=== PATIENT | female | born 1985 | race Caucasian/White ===

== ENCOUNTER 2018-06-14 19:25 | Outpatient (CLI) | payer BC, SELFPAY ==
[2018-06-14 20:16] LABS: Mucous, Urine 0 SEEN /hpf (<or=2+)
[2018-06-14 20:18] LABS: Color, Urine Yellow (Yellow); Glucose, Dipstick Normal (Normal); Leukocyte Esterase-Dipstick 100 /ul (Negative); Nitrite-Dipstick Negative (Negative); Occult Blood-Urine Negative /ul (Negative); Protein-Dipstick Negative (Negative); Urine Bilirubin Dipstick Negative (Negative); Urine Clarity Clear (Clear); Urine Urobilinogen Normal (Normal)
[2018-06-14 20:26] LABS: Ketone-Dipstick 150 mg/dl (Negative)
[2018-06-14 20:31] LABS: White Blood Cells 10-25 SEEN /hpf (0-5)
[2018-06-14 20:32] LABS: Bacteria 1+ /hpf (None Seen); Red Blood Cells-Urine 0-5 SEEN /hpf (0-5); Squamous Epithelial Cells - UA 5-10 SEEN /hpf (5-10)
[2018-06-14 21:13] VITALS: BMI 30.4
--- NOTE | 2018-06-15 01:42 | OB.TRI.NOTE ---
- Problem List (1) Trichomonas contact, untreated Status: Acute (2) Uterine contractions or other obstetric complaints Status: Acute History of Present Illness Date of Service: 06/14/18 Was patient seen by the physician?: No Reason For Visit: R/O LABOR Date of Service: 06/14/18 Final SHERWIN: 07/06/18 Gestational age: 37 Weeks and 0 Days History of Present Illness: 32 year old female presenting to L&D with complaints of uterine contractions. Positive trichomonas last week, has not taken medication for treatment and no partner treatment. Denies any vaginal bleeding or leakage of fluid. Good movement. Allergies No Known Allergies Allergy (Verified 06/14/18 21:15) NST - FHR Rate Baby A Baseline: 130 Variability:: Moderate Accelerations:: 15 x 15 Decelerations:: Variable NST Reactive:: Yes Uterine Activity:: Every 2-3 minutes Impression/Plan A: False labor P: 1) NST reactive, no cervical change, ok to D/C home 2) Patient has not completed medication for trichomonas infection nor has partner been treated. To complete therapy for trichomonas and instructed for partner treatment and no intercourse during treatment.
== END 2018-06-14 22:35 | disposition home or self-care (01) ==
LOC: WPOUT 20:02 → WP 20:03
PROVIDERS: Family Provider Internal Medicine; PCP Internal Medicine; Visit Provider Obstetrics & Gynecology
DX: O47.1 False labor at or after 37 completed weeks of gestation (principal); O98.313 Other infections with a predominantly sexual mode of transmission complicating pregnancy, third trimester; A59.9 Trichomoniasis, unspecified; Z3A.37 37 weeks gestation of pregnancy
CPT/HCPCS: 59025; 59050; 81001; 87086; 87088; 99218; G0378

== ENCOUNTER 2018-06-23 11:35 | Outpatient (CLI) | payer BC, SELFPAY ==
[2018-06-23 11:53] VITALS: BMI 29.9
[2018-06-23 12:44] LABS: Hemoglobin 10.4 g/dl (12.0-15.0); Mean Corp Hgb Conc 32.5 g/gl (32-36); Mean Corpuscular Hgb 29.4 pg (27.0-32.0); Mean Corpuscular Volume 90.4 fL (81-99); Mean Platelet Vol. 9.6 fl (6.2-12.0); Platelet Count 264 K/mm3 (150-450); RBC Distribution Width CV 12.5 % (11.6-14.6); RBC Distribution Width SD 41.4 fl (35.1-43.9); Red Blood Count 3.54 M/mm3 (4.2-5.4); Scan Indicated on CBC? Y/N NO; White Blood Count 9.6 K/mm3 (4.4-11.0)
[2018-06-23 12:53] LABS: Protein, Urine (Random) 23.5 mg/dL (<11.9); Protein:Creat Ratio 249 mg/g CRE (0-200)
[2018-06-23 13:15] LABS: ALB/GLOB Ratio 0.6 RATIO (0.9-2.4); AST(SGOT) 12 U/L (15-37); Alanine Aminotransfer ALT/SGPT 17 U/L (13-56); Albumin, Serum 2.4 g/dL (3.2-5.0); Alkaline Phosphatase 222 U/L (45-117); Anion Gap 10 (5-15); BUN 7 mg/dL (7-18); BUN/Creat Ratio 11.1 RATIO (10-20); Calcium,Total 8.4 mg/dL (8.5-10.1); Chloride 106 mmol/L (98-107); Creatinine, Serum 0.63 mg/dL (0.55-1.02); EST Glomerular Filtration Rate 115 mL/min (>60); Est Glom Filt Rate - Afr Amer 140 mL/min (>60); Estimated Creatinine Clearance 120.01 ml/min; Globulin 4.1 g/dL (2.2-4.2); Glucose 85 mg/dL (74-106); Potassium 3.8 mmol/L (3.5-5.1); Protein, Total 6.5 g/dL (6.4-8.2); Sodium Level 137 mmol/L (136-145)
--- NOTE | 2018-06-23 13:54 | OB.TRI.NOTE ---
- Problem List (1) Nausea & vomiting Status: Acute History of Present Illness Date of Service: 06/23/18 Was patient seen by the physician?: Yes Reason For Visit: Nausea & Vomiting Date of Service: 06/23/18 Final SHERWIN: 07/06/18 Gestational age: 38 Weeks and 1 Days History of Present Illness: 32-year-old 011 at 38w1d gestation presenting to triage with multiple complaints. Her biggest complaint is of fatigue over the last several days. She admits to a headache that started last night and was unrelieved with Tylenol. Admits to intermittent vision changes that have now resolved. Denies epigastric or right upper quadrant pain. Admits to nausea and vomiting last night, as well as this morning. Last ate dinner last night and was not able to tolerate it. Has not had anything to eat or drink today. Has no appetite due to nausea. Denies fevers, chills, diarrhea. Denies new foods or sick contacts. Denies contractions, vaginal bleeding, loss of fluid. Also admits to sinus congestion, sore throat, and postnasal drip. The cold-like symptoms started this morning. The patient reports all of the above symptoms have been coming and going over the last several months. She reports multiple episodes of these same symptoms over the last several months. Per office chart review, she did report having daily headaches even before at two of her visits. Allergies No Known Allergies Allergy (Verified 06/14/18 21:15) - Pertinent Past Medical History Pertinent Past Medical History: Patient reported a history of thyroid disorder. Per office chart review she also has a history of tobacco use, depression, heroin use, trichomonas, and chronic hepatitis C. Review of Systems Constitutional: Reports: Weakness, Fatigue Eyes: Denies: Vision Change HEENT: Reports: Head Aches, Post Nasal Drip, Sinus Congestion, Sinus Drainage, Sore Throat Cardiovascular: Denies: Edema Respiratory: Denies: Shortness of Breath Gastrointestinal: Reports: Constipation, Nausea, Vomiting. Denies: Abdominal Pain, Diarrhea Gynecological: Denies: Vaginal bleeding Physical Exam General: Alert, Oriented x3 HEENT: Atraumatic, Normocephalic Cardiovascular: Regular rate Lungs: - - No increased resp effort Abdomen: Soft, Non Tender, Non-Distended, Gravid Extremities:: No edema Neurological: Deep Tendon Reflexes 2+/4 and Symmetrical, Neuro grossly intact NST - FHR Rate Baby A Baseline: 120 Variability:: Moderate Accelerations:: 15 x 15 Decelerations:: None NST Reactive:: Yes Uterine Activity:: Quiet Impression/Plan 32 y/o at 38w1d who presents to triage with multiple complaints. - Given IZQUIERDO and now resolved vision changes, obtained pre-eclampsia labs. Pre-e labs WNL. P/c ratio 249. BP normal in triage. Reflexes normal. Does not appear to be pre-eclampsia. Per office chart review, the patient did report daily IZQUIERDO's on multiple occasions. IZQUIERDO possibly secondary to dehydration - Cold-like symptoms as well as N/V possibly due to viral illness. Given Zofran in triage, and completed PO challenge. Patient tolerated food and water in triage. Given rx for 5 tablets of Zofran. Discussed with her the importance of hydration. Told her to call if her symptoms do not resolve in the next few days or if she cannot tolerate PO - Will have her complete a 24 hr urine protein/creatinine - Reviewed return precautions with the patient - To follow up at her next apt in the office next week
[2018-06-23] MEDS: Ondansetron ODT 4 MG Tablet PO (14:01)
== END 2018-06-23 14:40 | disposition home or self-care (01) ==
LOC: WPOUT 11:41 → WP 11:41
PROVIDERS: Obstetrics & Gynecology; Family Provider Internal Medicine; PCP Internal Medicine; Visit Provider Obstetrics & Gynecology
DX: O21.2 Late vomiting of pregnancy (principal); O26.893 Other specified pregnancy related conditions, third trimester; R51 Headache; J00 Acute nasopharyngitis [common cold]; Z3A.38 38 weeks gestation of pregnancy
CPT/HCPCS: 36415; 59025; 59050; 80053; 82570; 84156; 85027; 99218; G0378

== ENCOUNTER → 2018-06-24 14:39 | Outpatient (CLI) | payer BC, SELFPAY ==
[2018-06-24 15:55] LABS: 24 Hour Urine Protein 308.7 mg/24HR (<150 MG/24HR); 24HR. UA Prot. Total Volume 2100 mL; 24HR. Urine Creatinine 2.15 g/24 HR (0.70-1.90); Urine Protein (24 Hour) 14.7 mg/dL (<11.9)
== END ==
PROVIDERS: Family Provider Internal Medicine; PCP Internal Medicine; Visit Provider Obstetrics & Gynecology
DX: O26.899 Other specified pregnancy related conditions, unspecified trimester (principal); R51 Headache; Z3A.00 Weeks of gestation of pregnancy not specified
CPT/HCPCS: 81050; 82570; 84156

== ENCOUNTER 2018-06-27 00:55 | Outpatient (CLI) | payer BC, SELFPAY ==
[2018-06-27 01:52] VITALS: BMI 30.2
[2018-06-27 02:13] LABS: ROM Internal Control Test YES-OK TO RESULT pt. (Internal QC); ROM Patient Test Negative (Negative)
[2018-06-27 02:25] VITALS: RESP 18
--- NOTE | 2018-06-27 12:02 | OB.TRI.NOTE ---
History of Present Illness Date of Service: 06/27/18 Was patient seen by the physician?: No Reason For Visit: R/O SROM Date of Service: 06/27/18 Final SHERWIN: 07/06/18 Gestational age: 38 Weeks and 5 Days History of Present Illness: 32 year old Presented to L&D with complaint of leakage of fluid at 38w5d . Denies vaginal bleeding or contractions. Feels tightening at times. Allergies No Known Allergies Allergy (Verified 06/14/18 21:15) Physical Exam Vitals: Vital Signs Resp 18 06/27/18 02:25 NST - FHR Rate Baby A Baseline: 130 Variability:: Moderate Accelerations:: 15 x 15 Decelerations:: None NST Reactive:: Yes FHR Category:: Category I Uterine Activity:: q 1.5 to 4 minutes, lasting 30-150 seconds, mild. Patient did not feel contractions and can feel tighening on and off. Impression/Plan A:False labor P: 1) ROM plus negative 2) NST reactive. Uterine irritability 3) D/C home
== END 2018-06-27 02:25 | disposition home or self-care (01) ==
LOC: WPOUT 01:30 → WP 07-01 07:23
PROVIDERS: Family Provider Internal Medicine; PCP Internal Medicine; Visit Provider Obstetrics & Gynecology
DX: O47.1 False labor at or after 37 completed weeks of gestation (principal); Z3A.38 38 weeks gestation of pregnancy
CPT/HCPCS: 59025; 59050; 84112; 99218; G0378

== ENCOUNTER 2018-07-03 02:00 | Outpatient (CLI) | payer BC, SELFPAY ==
[2018-07-03 02:36] VITALS: BMI 30.6
[2018-07-03 03:00] LABS: ROM Internal Control Test YES-OK TO RESULT pt. (Internal QC); ROM Patient Test Negative (Negative)
[2018-07-03 03:15] VITALS: RESP 18
--- NOTE | 2018-07-03 08:05 | OB.TRI.NOTE ---
History of Present Illness Date of Service: 07/03/18 Was patient seen by the physician?: No Reason For Visit: R/O LABOR Allergies No Known Allergies Allergy (Verified 07/03/18 02:35) Physical Exam Vitals: Vital Signs Resp 18 07/03/18 03:15 NST - FHR Rate Baby A Baseline: 120 Variability:: Moderate Accelerations:: 15 x 15 Decelerations:: None NST Reactive:: Yes FHR Category:: Category I Uterine Activity:: q2-4min - palpate mild Impression/Plan 32yo @ 38.5 wks- Membranes intact 1) ROM plus negative 2) Dc home- NST reactive
== END 2018-07-03 03:15 | disposition home or self-care (01) ==
LOC: WPOUT 02:15 → WP 02:15
PROVIDERS: Family Provider Internal Medicine; PCP Internal Medicine; Visit Provider Obstetrics & Gynecology
DX: Z34.83 Encounter for supervision of other normal pregnancy, third trimester (principal)
CPT/HCPCS: 59025; 59050; 84112; 99218; G0378

== ENCOUNTER 2018-07-10 06:54 | Inpatient (IN) | payer BC, SELFPAY ==
[2018-07-10 07:01] VITALS: BMI 29.9
[2018-07-10] MEDS: Lactated Ringers 1,000 ML 50 ML IV ×2 (07:25→13:21)
[2018-07-10] MEDS: Oxytocin 30 units/NS 500 ml 30 UNITS/500 ML IV.SOLN IV (07:40)
[2018-07-10 07:46] LABS: Hematocrit 31.5 % (37-47); Hemoglobin 10.4 g/dl (12.0-15.0); Mean Corpuscular Volume 87.7 fL (81-99); Mean Platelet Vol. 10.4 fl (6.2-12.0); Platelet Count 292 K/mm3 (150-450); RBC Distribution Width CV 12.4 % (11.6-14.6); RBC Distribution Width SD 38.5 fl (35.1-43.9); Red Blood Count 3.59 M/mm3 (4.2-5.4); White Blood Count 9.7 K/mm3 (4.4-11.0)
[2018-07-10 07:48] LABS: Scan Indicated on CBC? Y/N NO
--- NOTE | 2018-07-10 08:22 | PCM.HP.OB ---
History Date of Admission: 07/10/18 Final SHERWIN: 07/06/18 Final SHERWIN Source: US <20 weeks Gestational age: 40 Weeks and 4 Days History of this : 32-year-old 3 para 1 Ab1 female who presents at 40-4/7 weeks gestation with EDC of 07/06/2018 by last menstrual period confirmed by first trimester ultrasound who presents for induction of labor. Patient has been complaining of decreased movement for several days. She came in the office the other day and complained of decreased movement. She had an JOHANNA of 7 cm with a vertical pocket of 5 cm and a reactive nonstress test. Audible and visual movement that the patient reports she did not feel were apparent on exam. Today she had normal movement. She was initially scheduled for induction of labor yesterday due to being status post 40 weeks gestation and decreased movement. Due to the acuity of the unit, she was moved to today which was clinically reasonable. She denies any vaginal bleeding or leaking of fluid. She has had some irregular contractions. has been complicated to date by tobacco use and persistent trichomonas. Patient states she has been treated for this and her partner has been tested and is negative, however in mid May her screen was still positive. She has a history of heroin use in the past but states she has not used for several years. She denies using alcohol during . She has a history of hepatitis C, but has been tested and has been negative and is considered hep C negative at this point. Allergies No Known Allergies Allergy (Verified 07/03/18 02:35) Home Medications: Home Medications Levothyroxine [Synthroid] 112 mcg PO DAILY 06/14/18 Vitamins 1 tablet PO DAILY 06/23/18 Tums 1 tab PO PRN PRN 06/23/18 Smoking Status: Current every day smoker Alcohol: Occasional - binge by history, denies during pregnnacy Substance Use Type: Heroin - quit 2009 per her report Number of Fetus(es): 1 History Past Pregnancies: Past Pregnancies Delivery Date Name GA/Weeks Outcome Route Weight Gender Labor Length Anesthesia Delivery Location Provider FOB Expected Infant Delivery Method: Spontaneous Vaginal Review of Systems Constitutional: Denies: Anorexia, Chills, Fever Eyes: Denies: Blurred vision Cardiovascular: Denies: Chest Pain Respiratory: Denies: Cough Gastrointestinal: Denies: Abdominal Pain Genitourinary: Denies: Dysuria Physical Exam General: Alert, Cooperative, No apparent distress Cardiovascular: Regular rate Lungs: Normal air movement Abdomen: Soft, Non Tender, Non-Distended, Appropriate for Gestational Age Extremities:: No edema BOAT BUFFER PLASTIC: Normal external genitalia Estimated gestational size: Appropriate for gestational size Presentation: Cephalic Cervix Dilation (cm): 1 - medium consistency, posterior Station: -3 Effacement (%): 60 Assessment/Plan All Active Problems Trichomonas contact, untreated (Acute) Uterine contractions or other obstetric complaints (Acute) Nausea & vomiting (Acute) 32-year-old 3 para 1 AB 1 female at 40-4/7 weeks gestation for induction of labor due to decreased movement. Risk benefits and alternatives to fully induction of labor with Pitocin and likely artificial rupture membranes been discussed with the patient, her questions were answered to her satisfaction she desires to proceed. Estimated weight by ultrasound and clinically is likely 4000 g. Pelvis is clinically adequate to expect vaginal delivery. Patient may use routine measures during labor as needed for pain control. History of trichomonas during . Testing remained persistently positive the site bite the patient being treated. Will give IV Flagyl intrapartum. Patient is group B strep positive. Will initiate prophylaxis intrapartum. History of IV drug use in the past, denies current use. Tox screens during labor have been negative..
[2018-07-10] MEDS: 0.9% Normal Saline 100 ML IV.SOLN. INTRA-UTER (08:35)
[2018-07-10 10:29] LABS: Amphetamine Urine VISTA NEGATIVE (<1000 ng/mL); Barbiturate Urine VISTA NEGATIVE (< 200 ng/mL); Benzodiazepine Urine VISTA NEGATIVE (< 200 ng/mL); Cocaine Urine VISTA NEGATIVE (< 300 ng/mL); Ecstacy Urine VISTA NEGATIVE (< 500 ng/mL); Methadone Urine VISTA NEGATIVE (< 300 ng/mL); PCP Urine VISTA NEGATIVE (< 25 ng/mL); THC Urine VISTA NEGATIVE (< 50 ng/mL); Vista UDS pH Range 6
[2018-07-10] MEDS: Oxytocin 30 units/NS 500 ml 30 UNITS/500 ML IV.SOLN 334 UNITS IV (20:30)
--- NOTE | 2018-07-10 20:49 | OP.PCM_ITS ---
Vaginal Delivery Maternal Presentation: Medically Indicated Induction - decreased movement Method of Induction: Pitocin, Lobo Bulb, Amniotomy Medical Reason for Induction: - - decreased movement Amniotic Membrane Rupture Type: Artificial Amniotic Fluid Description: Clear Final SHERWIN: 07/06/18 Final SHERWIN Source: US <20 weeks Gestational age: 40 Weeks and 4 Days Date of Procedure: 07/10/18 Pre-Operative Diagnosis: labor Post-Operative Diagnosis: same Surgery/ Procedure Performed: Spontaneous Vaginal Delivery Type of Anesthesia: Epidural - not working through transition and second stage Description of Procedure: A vigorous male was delivered MICHELLE over an intact hernia. [A loose nuchal cord ?1 was easily reduced.] The remainder the was attempted to be delivered with maternal pushing and gentle traction only. The patient was not having adequate pushing at this point due to her significant discomfort. The anterior shoulder did not immediately deliver with just gentle traction. Her legs after 30 seconds were repositioned to Pedro position and then with one strong push she was able to deliver the anterior shoulder without difficulty. The remainder the was delivered in less than 15 seconds without difficulty. The infant was not initially vigorous so the cord was clamped and cut and the infant was transferred to the [facility] for evaluation. The Pitocin infusion was initiated for active management of the third stage. The infant was attended to by the waiting nursing staff and the specialty food products supervisor arrived within 1 minute of . The placenta was delivered spontaneously and intact. The cervix and vagina were intact. Sponge and needle counts were correct. A vaginal sweep was completed by me. Presentation: MICHELLE Placental Delivery Description: Spontaneous Placenta Disposition: [facility] Cord Vessel Description: 3 Vessels Nuchal Cord Compression: Without compression Cord Gases drawn per routine: ABG, VBG Cord Entanglement: Around neck x 1, loose Drain: Lobo to straight drain Estimated Blood Loss: 300 A gender: Male Episiotomy Description: None Laceration: None Medications given after delivery: IV Pitocin Complications: None
[2018-07-10] MEDS: Oxytocin 30 units/NS 500 ml 30 UNITS/500 ML IV.SOLN 167 UNITS IV (21:00)
[2018-07-11 00:02] VITALS: BP 117/74; PULSE 86; RESP 17; TEMP 37.2
[2018-07-11 04:00] VITALS: BP 118/68; PULSE 72; RESP 16; TEMP 36.4
[2018-07-11] MEDS: Levothyroxine 112 MCG Tablet PO (05:55)
[2018-07-11 08:15] VITALS: BP 101/65; PULSE 73; RESP 16; TEMP 36.7; O2SAT 96
[2018-07-11 12:05] VITALS: BP 93/56; PULSE 86; RESP 16; TEMP 36.5; O2SAT 97
--- NOTE | 2018-07-11 13:18 | PCM.PN.OB ---
Subjective: pain well controlled, average lochia, no N/V - Physical Exam General: Alert, Cooperative, No apparent distress Vital Signs Temp Pulse Resp BP Pulse Ox 97.7 F L 86 16 93/56 L 97 07/11/18 12:05 07/11/18 12:05 07/11/18 12:05 07/11/18 12:05 07/11/18 12:05 Oxygen Delivery Method Room Air Weight: 84.368 kg Body Mass Index (BMI) 29.9 Intake and Output for Last 24 Hours 07/09/18 07/10/18 07/11/18 23:59 23:59 23:59 Intake Total 2975 / 2975 600 / 600 Output Total 200 / 200 900 / 900 Balance 2775 / 2775 -300 / -300 Medical Necessity - Tobacco Use Smoking Status: Current every day smoker Assessment/Plan All Active Problems Trichomonas contact, untreated (Acute) Uterine contractions or other obstetric complaints (Acute) Nausea & vomiting (Acute) PPD#1 doing well infant doing well likely d/c tomorrow
--- NOTE | 2018-07-11 13:20 | DCINST_ITS ---
Discharge Diet: No Restrictions Discharge Activity: Return to Normal Activity, May not drive while taking narcotic pain medications., May Shower May resume sexual activity in: 4-6 weeks Additional Activity Instructions:: Nothing in the vagina for 4-6 weeks. You may return to work/school in 6 weeks. Call your doctor if your incision/area has: Continuous Slow Oozing, Sudden Increased Bleeding, Increased Pain/ Swelling, Increased Redness, Foul Smelling Discharge Additional Instructions: If you experience any of the following, contact your healthcare provider. * Bleeding that soaks a pad every hour for 2 hours * Fever 100.4 or higher * Unrelieved incision or abdominal pain * Swelling, redness, discharge or bleeding from your incision or episiotomy site * Your incision begins to separate * Problems urinating (including inability to urinate or burning while urinating) . * Visual changes * Severe headache * Flu-like symptoms * Pain or redness in one of both of your breasts * Pain, warmth, tenderness or swelling in your legs, especially the calf area * Frequent nausea and vomiting * Symptoms of depression or anxiety If you experience any of the following, call 911 or go to the nearest Emergency Room. * Chest pain * Problems breathing * Seizure activity * Partial or complete paralysis of a body part, slurred speech, weakness or drooping of the face, or a sudden inability to walk or hold your balance Allergies/Adverse Reactions: Allergies No Known Allergies Allergy (Verified 07/03/18 02:35) Medications to take at Discharge Levothyroxine [Synthroid] 112 mcg PO DAILY 06/14/18 Vitamins 1 tablet PO DAILY 06/23/18 Ibuprofen [Motrin] 800 mg PO TID PRN PRN #60 tab 07/11/18 The following prescriptions were given: Ibuprofen [Motrin] 800 mg PO TID PRN PRN #60 tab PRN Reason: Pain Please Follow Up With: Tia Toure MD - [phone] When: Call to make an appointment with your doctor's office in 1-2 and in 6 weeks. If you had elevated Blood Pressure or 4th degree laceration you will need to be seen in 2 weeks. Primary Care Physician: Ree Galindo MD [Primary Care Provider] - Test Results: Test results from this visit will be discussed in further detail at your follow- up appointment, if applicable.
[2018-07-11 16:30] VITALS: BP 101/68; PULSE 86; RESP 16; TEMP 36.7; O2SAT 95
--- NOTE | 2018-07-11 17:22 | CASEMGMT ---
SOCIAL WORK ASSESSMENT COMPLETED IN INFANT'S CHART ALONG WITH PROGRESS NOTE. POORNIMA Kirk
[2018-07-11 19:57] VITALS: BP 96/55; PULSE 68; RESP 16; TEMP 36.4
[2018-07-12 02:00] VITALS: BP 88/51; PULSE 76; RESP 16; TEMP 36.4
[2018-07-12] MEDS: Levothyroxine 112 MCG Tablet PO (06:52)
[2018-07-12 09:36] VITALS: BP 89/57; PULSE 84; RESP 16; TEMP 36.7; O2SAT 97
[2018-07-12] MEDS: Naproxen 250 MG Tablet PO (09:54)
--- NOTE | 2018-07-12 11:14 | PCM.PN.OB ---
Subjective: pain well controlled, average lochia. +BM. denies depression/baby blues - Physical Exam General: Alert, Cooperative, No apparent distress Abdomen: Soft, Tender - appropriately Vital Signs Temp Pulse Resp BP Pulse Ox 98.0 F 84 16 89/57 L 97 07/12/18 09:36 07/12/18 09:36 07/12/18 09:36 07/12/18 09:36 07/12/18 09:36 Oxygen Delivery Method Room Air Weight: 84.368 kg Body Mass Index (BMI) 29.9 Intake and Output for Last 24 Hours 07/10/18 07/11/18 07/12/18 23:59 23:59 23:59 Intake Total 2975 / 2975 600 / 600 Output Total 200 / 200 900 / 900 Balance 2775 / 2775 -300 / -300 Medical Necessity - Tobacco Use Smoking Status: Current every day smoker Assessment/Plan All Active Problems Trichomonas contact, untreated (Acute) Uterine contractions or other obstetric complaints (Acute) Nausea & vomiting (Acute) PPD#2 doing well ready for d/c
[2018-07-12 13:25] VITALS: BP 106/57; PULSE 71; RESP 16; TEMP 36.9; O2SAT 99
== END 2018-07-12 13:55 | disposition home or self-care (01) | DRG 774 ==
PROVIDERS: Admitting Provider Obstetrics & Gynecology; Family Provider Internal Medicine; PCP Internal Medicine; Visit Provider Obstetrics & Gynecology
DX: O36.8130 Decreased fetal movements, third trimester, not applicable or unspecified (principal); O98.82 Other maternal infectious and parasitic diseases complicating childbirth; O98.32 Other infections with a predominantly sexual mode of transmission complicating childbirth; O48.0 Post-term pregnancy; Z3A.40 40 weeks gestation of pregnancy; B95.1 Streptococcus, group B, as the cause of diseases classified elsewhere; A59.9 Trichomoniasis, unspecified; O69.81X0 Labor and delivery complicated by cord around neck, without compression, not applicable or unspecified; O99.334 Smoking (tobacco) complicating childbirth; Z37.0 Single live birth
CPT/HCPCS: 59025; 59050; 80307; 85027; 86850; 86900; 99218; J7050; J7120; G0378

== ENCOUNTER 2019-05-28 05:19 | Emergency (ER) | payer OTHER, BC, SELFPAY ==
[2019-05-28 05:20] VITALS: BP 130/79; PULSE 85; RESP 16; TEMP 36.9; O2SAT 97; BMI 34.0
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
[2019-05-28] MEDS: Fluorescein 1 MG STRIP 1 STRIP RIGHT EYE (06:28)
[2019-05-28 06:58] VITALS: BP 128/60; PULSE 75; RESP 16; O2SAT 98
--- NOTE | 2019-05-28 06:58 | ED.RN ---
pt had a total of 3 liter normal saline eye flush.
== END 2019-05-28 06:59 | disposition home or self-care (01) ==
PROVIDERS: Emergency Provider Emergency Medicine; Family Provider Internal Medicine; PCP Internal Medicine
DX: T26.91XA Corrosion of right eye and adnexa, part unspecified, initial encounter (principal); Z77.098 Contact with and (suspected) exposure to other hazardous, chiefly nonmedicinal, chemicals; F17.200 Nicotine dependence, unspecified, uncomplicated
CPT/HCPCS: 99284; J7030

== ENCOUNTER 2024-02-23 17:40 | Outpatient (CLI) | payer MEDICAID, SELFPAY ==
[2024-02-23 17:58] VITALS: BP 105/61; PULSE 82
[2024-02-23 18:25] VITALS: PULSE 84; O2SAT 98
[2024-02-23 18:26] VITALS: BP 100/60; PULSE 78
[2024-02-23 18:28] VITALS: RESP 16; TEMP 36.7; O2SAT 98
[2024-02-23 18:28] LABS: ROM Internal Control Test YES-OK TO RESULT pt. (Internal QC); ROM Patient Test Negative (Negative); Record Kit Lot#, ROM+ K1409
[2024-02-23 18:36] VITALS: BMI 30.7
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
== END 2024-02-23 18:50 | disposition home or self-care (01) ==
LOC: WPOUT 17:44 → WP 17:45
PROVIDERS: PCP Internal Medicine; Referring Provider Advanced Practice Midwife; Visit Provider Advanced Practice Midwife
DX: O99.891 Other specified diseases and conditions complicating pregnancy (principal); O99.333 Smoking (tobacco) complicating pregnancy, third trimester; N89.8 Other specified noninflammatory disorders of vagina; F17.200 Nicotine dependence, unspecified, uncomplicated; Z79.899 Other long term (current) drug therapy; Z3A.32 32 weeks gestation of pregnancy
CPT/HCPCS: 59025; 59050; 84112; 99221; G0378

== ENCOUNTER 2024-03-10 14:09 | Emergency (ER) | payer MEDICAID, SELFPAY ==
[2024-03-10 14:10] VITALS: BP 100/66; PULSE 92; RESP 18; TEMP 36.1; O2SAT 99; BMI 29.9
--- NOTE | 2024-03-10 14:20 | EKG12_ITS ---
Test Reason : SYNCOPE Blood Pressure : / mmHG Vent. Rate : 087 BPM Atrial Rate : 087 BPM P-R Int : 124 ms QRS Dur : 088 ms QT Int : 334 ms P-R-T Axes : 041 040 -14 degrees QTc Int : 401 ms Normal sinus rhythm Nonspecific T wave abnormality Abnormal ECG No previous ECGs available Confirmed by Vignesh Ko ([id number]), video tape editor SACHI JEFFERS ([id number]) on 03/16/2024 8:04:53 AM Referred By: Confirmed By:Vignesh Ko
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
[2024-03-10] MEDS: Lidocaine/Epi/Tetracaine 50 ML 1 APPLIC TOPICAL (14:50)
[2024-03-10 15:33] VITALS: BP 112/74; BP 112/82; BP 132/78; PULSE 72; PULSE 76; PULSE 80
[2024-03-10 15:42] VITALS: BP 132/78; PULSE 80; RESP 14; TEMP 36.6; O2SAT 100
== END 2024-03-10 15:43 | disposition home or self-care (01) ==
PROVIDERS: Emergency Provider Emergency Medicine; PCP Internal Medicine; Visit Provider Emergency Medicine
DX: O9A.213 Injury, poisoning and certain other consequences of external causes complicating pregnancy, third trimester (principal); R55 Syncope and collapse; O99.333 Smoking (tobacco) complicating pregnancy, third trimester; S01.01XA Laceration without foreign body of scalp, initial encounter; F17.200 Nicotine dependence, unspecified, uncomplicated; Z3A.00 Weeks of gestation of pregnancy not specified
CPT/HCPCS: 12002; 90715; 93005; 99285

== ENCOUNTER 2024-04-12 07:15 | Inpatient (IN) | payer MEDICAID, SELFPAY ==
[2024-04-12] VITALS (46 sets, daily range): BP systolic 87–118; BP diastolic 37–79; PULSE 54–104; RESP 12–18; TEMP 35.9–36.7; O2SAT 96–100; BMI 30.4
[2024-04-12] MEDS: Lactated Ringers 1,000 ML 50 ML IV (07:35)
[2024-04-12] MEDS: Oxytocin 15 Units/NS 250ml 15 UNITS/250 ML IV.SOLN 2 UNITS IV (08:00)
[2024-04-12 08:01] LABS: Absolute Lymphocyte Count 2.39 X10^3/uL (0.83-4.51); Absolute Neutrophil Count 5.6 X10^3/uL (2.0-7.7); Basophil# 0.02 X10^3/uL; Basophil% 0.2 % (0-1); Eosinophil# 0.08 X10^3/uL; Eosinophils% 0.9 % (0-5); Hematocrit 32.5 % (37-47); Hemoglobin 10.3 g/dL (12.0-15.0); Lymphocyte # 2.39 X10^3/ul (0.83-4.51); Lymphocyte % 27.6 % (19-41); Mean Corp Hgb Conc 31.7 g/dL (32-36); Mean Corpuscular Hgb 27.7 pg (27.0-32.0); Mean Corpuscular Volume 87.4 fL (81-99); Mean Platelet Vol. 9.6 fl (6.2-12.0); Monocyte# 0.53 X10^3/uL; Monocyte% 6.1 % (0-10); NRBC Flagged by Analyzer 0 % (0-5); Neutrophil % 64.6 % (47-70); Platelet Count 282 K/mm3 (150-450); RBC Distribution Width CV 12.9 % (11.6-14.6); RBC Distribution Width SD 40.9 fl (35.1-43.9); Red Blood Count 3.72 M/mm3 (4.2-5.4); White Blood Count 8.7 K/mm3 (4.4-11.0)
[2024-04-12] MEDS: 0.9% Normal Saline Single 100 ML IV.SOLN. INTRA-UTER (08:15)
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
[2024-04-12 08:50] LABS: Syphilis Antibodies Non-reactive
[2024-04-12] MEDS: Lactated Ringers 1,000 ML 999 ML IV (10:39)
[2024-04-12] MEDS: LACTATED RINGERS 500 ML 999 ML IV ×2 (11:40→12:23)
--- NOTE | 2024-04-12 12:27 | PCM.PN.OB ---
Subjective Subjective Sitting up in bed after epidural placement. Coping well, family at bedside. Objective Data Objective Data Vital Signs: Vital Signs Temp Pulse Resp BP Pulse Ox 98.0 F 56 L 16 87/48 L 100 04/12/24 09:30 04/12/24 12:24 04/12/24 10:33 04/12/24 12:23 04/12/24 12:24 Weight: 188 lb 4.396 oz Body Mass Index (BMI) 30.4 Intake & Output: Intake and Output for Last 24 Hours 04/10/24 04/11/24 04/12/24 23:59 23:59 23:59 Intake Total 11.20 / 11.20 Balance 11.20 / 11.20 Lab / Micro Data 04/12/24 07:35 Labs: Laboratory Results - last 24 hr 04/12/24 07:35: WBC 8.7, RBC 3.72 L, Hgb 10.3 L, Hct 32.5 L, MCV 87.4, MCH 27.7, MCHC 31.7 L, RDW Std Deviation 40.9, RDW Coeff of Kim 12.9, Plt Count 282, MPV 9.6, Immature Gran % (Auto) 0.600, Neut % (Auto) 64.6, Lymph % (Auto) 27.6, [place] % (Auto) 6.1, Eos % (Auto) 0.9, Baso % (Auto) 0.2, Absolute Neuts (auto) 5.6, Absolute Lymphs (auto) 2.39, Nucleated RBC % 0, Syphilis Total Ab Non-reactive, Blood Type O POSITIVE, Antibody Screen NEGATIVE Physical Exam Manual OB Exam: presentation cephalic, dilated 4, effaced 60, station -1 and other AROM large amount of clear fluid NST FHR Rate Baby A Baseline: 130 Variability:: Moderate Accelerations:: 15 x 15 Decelerations:: Variable FHR Category:: Category II Uterine Activity:: every 1-3 minutes, pitocin at 8mu Assessment & Plan (1) Active labor: (2) Encounter for induction of labor: (3) 39 weeks gestation of : PLAN: Plan 1) Continue with active management, pitocin per protocol. Monitor contractions after rupture and turn down if tachysytole 2) Category 2 FHT 3) Epidural for pain management 4) AROM 5) collaborative physician and updated on above assessment and plan
--- NOTE | 2024-04-12 13:30 | FALS_PTH ---
PATIENT: INNA ALBERT LOC: [facility] U#:[id number] AGE/SX: 38/F ROOM: WP006 RE04/12/[address]: Dr. Tia Toure MD : 1985 BED: 1 DIS: 04/14/2024 SPEC #: [id number] RECD: 04/12/24 14:39 STATUS: REGINE REQ #: [id number] LARA: 04/12/24 13:[address]: Tia Toure DEPT: SURGICAL PATHOLOGY RECD BY: Serene Valderrama ENTERED: 04/13/24 09:56 SP TYPE: FALL TUBES OTHR DR: Dr. Ree Galindo MD Tissues: Fallopian tube Procedures: Surgery Specimen Level II HEADER OPERATION: Tubal ligation PRE-OP DIAGNOSIS: Tubal TISSUE SUBMITTED: Bilateral fallopian tubes MICROSCOPIC DIAGNOSIS Right fallopian tube, salpingectomy: Complete sections of fallopian tube with no pathologic change. Left fallopian tube, salpingectomy: Complete sections of fallopian tube with no pathologic change. AM: 04/14 MICROSCOPIC DESCRIPTION Slides are reviewed. GROSS DESCRIPTION Received in fixative is one container labeled with the patient's name and designated bilateral fallopian tubes- stitch on right. The specimen consists of two fallopian tubes with an average length of 6.0 cm and has an average diameter of 1.0 cm. Both fallopian tubes have normal fimbriated ends. No mass lesions are identified. Oil Expeller sections are submitted in two cassettes as follows: 1 - right fallopian tube, 2 - left fallopian tube. / AM: 04/13/2024 TC:4 CPT: 91685 x2
--- NOTE | 2024-04-12 13:37 | EX.PCM.OBRPT ---
Maternal Data Information SHERWIN Calculator Estimated Delivery Date Method Current WG Current Estimate 04/18/24 Manual 39w 1d Final SHERWIN: 04/18/24 Gestational age: 39 1/7 Details Operative Information Date of Procedure: 04/12/24 Pre-Operative Diagnosis: cord prolapse Post-Operative Diagnosis: same Classification: Stat Procedure Type: low transverse veterinary toxicologist #1: Celeste Gauthier veterinary toxicologist #2: Eugenia Fields Type of Anesthesia: Epidural Anesthesiologist: Javed Ann Antibiotic Given: Ancef 2 grams IV x1 Drain: Lobo to straight drain (placed at end of the case) Estimated Blood Loss: 800 Fluids Replaced: 1500 Procedure Start Time: 12:57 Procedure Stop Time: 13:24 Time of Delivery: 12:59 Findings Description of Procedure: The patient had artificial rupture membranes performed by Becca JARRETT and after she left the room, it was noted that she had decreased heart tones. The nurse checked the patient and found a cord prolapse. The patient was taken to the operating room. A hand was left to hold the head off of the cord until delivery of the fetus. An OB ERT was called and I was called in from the office. Dr. Grullon arrived as the patient was taken into the operating room. She was prepped and draped in the dorsal supine position with a leftward tilt. A Betadine prep was poured and an emergent section was started by Dr. Grullon. I arrived and was present for delivery of the fetus and the critical parts of the surgery. The skin incision was made with scalpel and extended laterally with blunt dissection. The fascia was incised with the scalpel and the fascial incision extended with blunt dissection. The peritoneum was entered bluntly and carefully as a Lobo catheter had not been placed yet. The peritoneum was stretched and bladder blade was placed. Hysterotomy incision was made a low transverse fashion with scalpel and extended bluntly and the head was delivered out of the pelvis by Dr. Grullon. I was present for delivery of the and took over after delivery. The cord was clamped and cut as the was stimulated. . The was handed off to the waiting nursing staff. The placenta was delivered with fundal massage and gentle traction in the standard fashion. The uterus was exteriorized and cleared of all clots and debris. The uterine incision was closed with #1 Vicryl in a running locked fashion. [A second layer of the same suture was used in an imbricating fashion.] The incision was examined and was found to be hemostatic. The left fallopian tube was identified and followed out to the fimbriated end and tented up with graspers. The LigaSure device was used to clamp, seal and transect the antimesenteric portion of the tube away from the broad ligament and then across the insertion in the cornual area of the uterus. Excellent hemostasis was noted and the entire tube was amputated and handed off to pathology. The same procedure was performed on contralateral side Hemostasis was noted. The uterus was placed back into the peritoneal cavity and hemostasis was again confirmed. Some hemoblast was placed over the uterine incision. The rectus muscles were examined and any bleeding was Bovie cauterized. [The parietal peritoneum and rectus muscles were closed en bloc with an 0 Vicryl running suture]. Some hemoblast was placed over the rectus muscles. The rectus fascia was examined and any bleeding was Bovie cauterized and the rectus fascia was closed with [1 Vicryl] suture in a running standard fashion. The subcutaneous tissue was examining and any bleeding was Bovie cauterized. [The subcutaneous tissue was reapproximated with 3-0 Vicryl suture after some hemoblast was placed in this layer.] The skin was closed in a subcuticular fashion with 3-0 Monocryl suture. I performed the entire procedure with assistance other than as dictated above. All sponge, lap, and needle counts were correct. The patient was taken to her room for recovery in a stable condition. Presentation: Positive for Vertex Amniotic Membrane Rupture Type: Artificial Amniotic Fluid Description: Clear Placental Delivery Description: Expressed Placenta Disposition: [facility] Specimen(s) Sent to Pathology: bilateral fallopian tubes Cord Vessel Description: 3 Vessels Cord Entanglement: None Cord Gases: ABG and VBG Infant A Gender: Female (Nicki) (1 minute): 9 (5 minute): 9 Delayed Cord Clamping: No Complications Complications: none
[2024-04-12] MEDS: Oxytocin 15 Units/NS 250ml 15 UNITS/250 ML IV.SOLN 83 UNITS IV (13:40)
--- NOTE | 2024-04-12 13:44 | PCM.OP.BLANK ---
Problems Associated Problem List Diagnoses (1) Umbilical cord prolapse in labor and delivery: Operative Report Date of Procedure: 04/12/24 Labor and delivery nursing called requesting my assistance for an umbilical cord prolapse, 4 cm dilated with also arm presentation. Her primary OB is remote from the hospital. The patient's epidural was dosed by anesthesia. The patient was placed in the dorsal supine position with leftward tilt. Patient was prepped and draped with a betadine splash. There was too little time to place a vivar catheter. Pfannenstiel skin incision was made with the scalpel and carried through to the underlying layer of fascia with the scalpel. Fascia was nicked in the midline and the incision extended laterally. The peritoneum was entered digitally. The incision was stretched and a low transverse uterine incision was made with the scalpel. The infant's head was delivered atraumatically followed by the anterior and posterior shoulders without complication the rest of the infant delivered. The cord was clamped and cut and the infant was handed off to awaiting nurse. AT this point Dr. Toure, the patient's primary DOCTOR OF OSTEOPATHY presented to the OR and resumed care of the patient and completed the surgery. Multi Select Codes Urinary/Genital Urinary/Genital CPT Codes: 85962 delivery only
[2024-04-12 14:36] LABS: Pathology Specimen OB SEE PATHOLOGY REPORT
[2024-04-12] MEDS: Acetaminophen 500 MG Tablet 1000 MG PO ×2 (14:38→20:36)
[2024-04-12] MEDS: Ketorolac 30 MG/ML Syringe IV ×2 (14:40→20:36)
--- NOTE | 2024-04-12 16:47 | NURSING ---
During bedside report; Connie RN informed this RN that during epidural, patient was forthcoming with THC use throughout most recent being approx 2 weeks ago, NESTOR discussed with patient a drug screen for her now and infant once delivered and patient was in agreement; shortly after epidural, DUC was called for cord prolapse and the urine was not collected d/t emergent delivery. Provider states that it is not necessary to obtain maternal drug screen at this time d/t medication received during surgery; this RN explained to patient about not collecting maternal drug screen and that it is still appropriate to obtain infant urine and meconium sample for drug testing and patient in agreement.
[2024-04-12] MEDS: Lactated Ringers 1,000 ML 100 ML IV (17:00)
[2024-04-12] MEDS: HYDROmorphone 0.5 MG/0.5 ML SYRINGE IV ×2 (22:48→23:30)
[2024-04-13] MEDS: Ketorolac 30 MG/ML Syringe IV ×2 (02:17→08:03)
[2024-04-13] MEDS: Acetaminophen 500 MG Tablet 1000 MG PO ×4 (02:18→21:05)
[2024-04-13 04:11] VITALS: BP 99/61; PULSE 60; RESP 16; TEMP 36.9; O2SAT 98
[2024-04-13] MEDS: Levothyroxine 112 MCG Tablet PO (05:54)
[2024-04-13 06:09] LABS: Hematocrit 27.8 % (37-47); Hemoglobin 8.8 g/dL (12.0-15.0); Mean Corp Hgb Conc 31.7 g/dL (32-36); Mean Corpuscular Hgb 28.4 pg (27.0-32.0); Mean Corpuscular Volume 89.7 fL (81-99); Mean Platelet Vol. 9.3 fl (6.2-12.0); Platelet Count 207 K/mm3 (150-450); RBC Distribution Width CV 12.8 % (11.6-14.6); RBC Distribution Width SD 41.6 fl (35.1-43.9); White Blood Count 10.5 K/mm3 (4.4-11.0)
[2024-04-13 07:29] VITALS: BP 91/56; PULSE 59; RESP 16; TEMP 36.8; O2SAT 100
[2024-04-13] MEDS: 0.9% Saline Lock 10 ML Syringe IV (08:03)
--- NOTE | 2024-04-13 08:42 | PCM.PN.OB ---
Subjective Subjective Doing well. Ambulating and voiding without difficulty. Breast feeding. Pain controlled Objective Data Objective Data Vital Signs: Vital Signs Temp Pulse Resp BP Pulse Ox O2 Del Method 98.3 F 59 L 16 91/56 L 100 Room Air 04/13/24 07:29 04/13/24 07:29 04/13/24 07:29 04/13/24 07:29 04/13/24 07:29 04/13/24 07:29 Oxygen Delivery Method Room Air Weight: 85.4 kg Body Mass Index (BMI) 30.4 Intake & Output: Intake and Output for Last 24 Hours 04/11/24 04/12/24 04/13/24 23:59 23:59 23:59 Intake Total 2725.24 / 2725.24 941.67 / 941.67 Output Total 1300 / 1300 1100 / 1100 Balance 1425.24 / 1425.24 -158.33 / -158.33 Lab / Micro Data 04/13/24 05:55 Labs: Laboratory Results - last 24 hr 04/12/24 07:35: Syphilis Total Ab Non-reactive 04/13/24 05:55: WBC 10.5, RBC 3.10 L, Hgb 8.8 L, Hct 27.8 L, MCV 89.7, MCH 28.4, MCHC 31.7 L, RDW Std Deviation 41.6, RDW Coeff of Kim 12.8, Plt Count 207, MPV 9.3 ROS Constitutional Constitutional: Reports as per HPI Cardiovascular Cardiovascular: Denies chest pain Respiratory/Chest Respiratory/Chest: Denies cough Gastrointestinal Gastrointestinal: Denies cramping or diarrhea Genitourinary Genitourinary: Denies change in urinary stream Neurologic Neurologic: Reports as per HPI Physical Exam Const alert General Appearance: cooperative GI GI Narrative: soft, moderate distention, fundus firm, appropriately tender. Abdominal bandage clean dry and intact Assessment & Plan (1) Umbilical cord prolapse in labor and delivery: QUALIFIERS: Fetus number: single or unspecified fetus Qualified Code(s): O69.0XX0 - Labor and delivery complicated by prolapse of cord, not applicable or unspecified (2) Delivery by section: PLAN: Plan Routine care
[2024-04-13] MEDS: Senna/Docusate Sodium 1 Tablet PO (10:50)
[2024-04-13 13:00] VITALS: BP 94/55; PULSE 67; RESP 15; TEMP 36.7; O2SAT 98
[2024-04-13] MEDS: Ibuprofen 600 MG Tablet PO ×2 (15:33→21:04)
[2024-04-13 20:00] VITALS: BP 109/59; PULSE 65; RESP 16; TEMP 36.2; O2SAT 100
[2024-04-14 02:10] VITALS: BP 107/55; PULSE 72; RESP 16; TEMP 36.5; O2SAT 98
[2024-04-14] MEDS: Acetaminophen 500 MG Tablet 1000 MG PO ×3 (02:14→15:50)
[2024-04-14] MEDS: Ibuprofen 600 MG Tablet PO ×3 (02:14→15:50)
[2024-04-14] MEDS: Levothyroxine 112 MCG Tablet PO (05:39)
--- NOTE | 2024-04-14 06:44 | PCM.PN.OB ---
Subjective Subjective Doing well. No complaints. Pain minimal. Lochia light. Voiding and ambulating without difficulty. Breast and Bottle feeding. Objective Data Objective Data Vital Signs: Vital Signs Temp Pulse Resp BP Pulse Ox O2 Del Method 97.7 F L 72 16 107/55 L 98 Room Air 04/14/24 02:10 04/14/24 02:10 04/14/24 02:10 04/14/24 02:10 04/14/24 02:10 04/14/24 02:10 Oxygen Delivery Method Room Air Weight: 85.4 kg Body Mass Index (BMI) 30.4 Intake & Output: Intake and Output for Last 24 Hours 04/12/24 04/13/24 04/14/24 23:59 23:59 23:59 Intake Total 2725.24 / 2725.24 941.67 / 941.67 Output Total 1300 / 1300 1100 / 1100 Balance 1425.24 / 1425.24 -158.33 / -158.33 Lab / Micro Data 04/13/24 05:55 Physical Exam Const alert General Appearance: cooperative GI GI Narrative: soft, moderate distention, fundus firm, appropriately tender. Abdominal bandage clean dry and intact Assessment & Plan (1) Delivery by section: (2) Umbilical cord prolapse in labor and delivery: QUALIFIERS: Fetus number: single or unspecified fetus Qualified Code(s): O69.0XX0 - Labor and delivery complicated by prolapse of cord, not applicable or unspecified (3) Anemia affecting : QUALIFIERS: Trimester: third trimester Qualified Code(s): O99.013 - Anemia complicating , third trimester PLAN: Plan Discharge home. Has Motrin and iron at home
--- NOTE | 2024-04-14 06:49 | PCM.DC.SUM ---
Providers Date of Admission: 04/12/24 Date of Discharge: 04/14/24 Primary Care Physician: Dr. Ree Galindo MD Reason For Visit: PRIMARY C SECTION Diagnosis Discharge Diagnosis (1) Delivery by section: Status: Acute (2) Umbilical cord prolapse in labor and delivery: Status: Acute Code(s): O69.0XX0 - Labor and delivery complicated by prolapse of cord, not applicable or unspecified Qualifiers: Fetus number: single or unspecified fetus Qualified Code(s): O69.0XX0 - Labor and delivery complicated by prolapse of cord, not applicable or unspecified (3) Anemia affecting : Status: Acute Code(s): O99.019 - Anemia complicating , unspecified trimester Qualifiers: Trimester: third trimester Qualified Code(s): O99.013 - Anemia complicating , third trimester Plan Discharge home. Has Motrin and iron at home Medications at Discharge Home Medications levothyroxine 112 mcg tablet 112 mcg PO DAILY hypothyroidism 06/14/18 docosahexaenoic acid 200 mg capsule ( DHA) mg PO supplement 02/23/24 Hospital Course Operations section Procedures None Summary of Care Provided Minutes Spent on Discharge: 20 Hospital Course: Elective IOL at term. Cord prolapse shortly after AROM. Emergent c/s performed. Uncomplicated course. Bottle and breast feeding on discharge Physical Exam Const alert General Appearance: cooperative GI GI Narrative: soft, moderate distention, fundus firm, appropriately tender. Abdominal bandage clean dry and intact Weight / BMI Weight Weight: 85.4 kg Body Mass Index (BMI) 30.4 ABG / Lab / Microbiology Data 04/13/24 05:55 D/C Instructions Discharge Diet: No restrictions May resume sexual activity in: 4-6 weeks Lifting Restrictions: 20 pounds Additional Activity Instructions: Nothing in the vagina for 4-6 weeks. You may return to work/school in 6 weeks. Call your doctor if your incision/area has: Continuous Slow Oozing, Sudden Increased Bleeding, Increased Pain/ Swelling, Increased Redness and Foul Smelling Discharge Call your doctor if you observe: Fever of 101 or Higher and Using more than 1 pad per hour (for 2 hours) Suture Line Care: Avoid Pulling/Pushing and Avoid Pinching/Bending Cleanse incision/area with: Keep Dressing Clean & Dry Please Follow Up With: Tia Toure MD When: Call to make an appointment for an incision check in 1-2 [phone]. You will need a post check in 6 weeks. Meaningful Use Info Meaningful Use Meaningful Use Diagnoses (Choose all that apply): None applicable Ischemic Stroke Statin Dosing Therapy Reference: STATIN DOSE THERAPY REFERENCE: * Patients > 75 years receive moderate or high dose statin therapy. * Patients 75 years or YOUNGER should receive HIGH intensity statin dose unless contraindicated. You will be required to document reason for non-treatment if statin daily dose does not meet guidelines. HIGH DOSE STATIN THERAPY DAILY Atorvastatin > than or = to 40 mg Rosuvastatin > than or = to 20 mg Amlodipine + Atorvastatin > than or = to 2.5/40 mg Ezetimibe + Simvastatin 10/80 mg Simvastatin 80mg Discharge Plan Admission Admit Date/Time: 04/12/24 07:15 Primary Reason for Your Visit: Labor Attending Provider: Tia Toure Primary Care Provider: Ree Galindo Discharge Orders/Prescriptions Prescriptions: Continued levothyroxine 112 MCG tablet 112 mcg PO DAILY DHA 200 mg capsule PO Discontinued venlafaxine 75 MG tablet extended release 24hr 75 mg PO DAILY aspirin 81 mg capsule 81 mg PO DAILY Referrals / Follow Up: Ree Galindo MD [Primary Care Provider] - Disposition Disposition (needs filled in before D/C Order can be placed): Home, Self Care
[2024-04-14 08:40] VITALS: BP 102/82; PULSE 82; RESP 16; TEMP 36.4; O2SAT 100
[2024-04-14] MEDS: Senna/Docusate Sodium 1 Tablet PO (09:38)
--- NOTE | 2024-04-14 11:03 | CASEMGMT ---
Social Work Assessment Labor and Delivery Unit Patient Address: [address] [place] [address]. [address], [place] [address] Phone number: [phone] Date of Referral: 04/12/24 Time of Referral:? 1351 Referred By: Dr. Tuore Date of Intervention: ??04/14/24 Time of Intervention:? 929 Reason for Referral:? anxiety, depression, hx drug use Sw completed chart review and acknowledges social work consult due to maternal mental health history and substance use history. Sw presented to bedside, accompanied by OPERATOR CATALYST CONCENTRATION Eugenia Banuelos, introduced self to patient and completed psychosocial assessment. History obtained from: medical records, MOB Household composition: VICTOR MANUEL reports that she and FOB are currently residing with paternal grandmother. Also living in the home are other children to MOB and FOB: Sindhu (12- MOB's daughter), Dmitri (5- son to MOB and FOB), Brittney (17- FOB daughter), Princess (16- FOB's daughter) and Josh (10- FOB's son). There are now 6 children between MOB and FOB, baby is their second child together. - MOB states that FOB's daughter, Princess, has chosen not to come stay with them at this time. Other children alternate time with MOB/ FOB and their other parents. - VICTOR MANUEL denies any issues or concerns with housing, reports that it is safe and secure. Patient's parent/guardian status:? ?VICTOR MANUEL states that she and FOB met 7 years ago while FOB was working at a [employer] that MOB would frequent with friends after they had gone out drinking. No concerns reported at this time regarding domestic violence or intimate partner violence. Medical History: ?VICTOR MANUEL is 38 year old female who is 4, para 2- now 3 following labor and delivery of baby. VICTOR MANUEL received routine care during with [facility]. VICTOR MANUEL presented to hospital on 04/12/24 for an induction of labor and required emergency delivery due to prolapsed cord of baby. Baby girl, Nicki Park, was born on 04/[birth year]/24 at 39 weeks gestation weighing 7lb 1oz with apgars of 9 and 9 at one and five minutes of life, respectfully. VICTOR MANUEL states that she is breast feeding and has a pump for home. Baby will be followed by Dr. Gaspar for pediatrics. Educational Status:?VICTOR MANUEL states that both parents completed high school. JILLIAN obtained a medical certificate. No issues with reading, learning or comprehension. Financial Status: Both parents are gainfully employed outside of the home. FOYung works in the [employer], VICTOR MANUEL works for a local [employer]. Both parents are able to have off adequate leave time for maternity/ paternity leave. Supplies:?? Parents have obtained all necessary baby supplies, including: car seat, safe sleep space, clothes, diapers and wipes. Childcare/Caregiver(s):? VICTOR MANUEL reports that she will be the primary caregiver, along with JILLIAN when he is not working. MOB states that they have the help of paternal grandma for childcare. Transportation:?Both parents have their drivers license and reliable means of transportation. No barriers at this time. ? Programs/Agencies Involved: ??VICTOR MANUEL states that she is connected to [employer] and medical through [facility]. VICTOR MANUEL has used WIC in the past, but is not currently connected. ? Children Services/Legal Issues:??? VICTOR MANUEL denies history of children services involvement. VICTOR MANUEL was informed that a referral will need to be made due to her substance use during and infant exposure inutero. VICTOR MANUEL expressed understanding. - Urbano called [facility] and spoke to hotline screener: Behavioral Health Issues: ??Mental Health History: MOB states that JILLIAN does not have any mental health diagnoses. VICTOR MANUEL reports to being diagnosed with anxiety and depression. VICTOR MANUEL states that she was prescribed zoloft in the past, but was taking pristique up until discovering of . VITCOR MANUEL reports that her PCP is her Pristiq prescriber. ??? Substance Use History: VICTOR MANUEL does have substance use history including heroin. VICTOR MANUEL's last use was in 2009. VICTOR MANUEL reports that she did not complete a treatment program, but cold turkey. VICTOR MANUEL states that her mother kept her in the home while she went through withdrawal. VICTOR MANUEL states that she stopped associating with people, places and things, and has not had any urges since that time to use. MOB denies substance use for JILLIAN. ?? Family History:?MOB denies family history of addiction or significant mental health diagnoses. ? Drug Screens: Last urine screen charted in VICTOR MANUEL's chart is from 2018 and it is negative for all substances. Urbano completed chart review of paper chart and no toxicology tests seen. First urine's on were missed, meconium testing still pending. ?? Family/Social Stressors:? MOB denies any issues, concerns or stressors at this time. Support Systems: MOB identifies that FOYung and her daughter are her biggest supports at this time. Depression/Shaken Baby/Safe Sleeping:? Sw educated MOB on signs and symptoms of baby blues and anxiety and mood disorders. Sw educated MOB to seek help and support should she experience symptoms. MOB expressed understanding. MOB states that FOB would be able to recognize if she was struggling and would know how to help and support her. MOB reports to telling FOB when she needs something. Sw educated MOB on shaken baby prevention and ABCs of safe sleep. Sw provided MOB with handouts/ educational material on these topics. ASSESSMENT:? MOB and baby admitted following labor and delivery. MOB answered questions asked by social work during completion of psychosocial assessment. During sw intervention baby was observed to be asleep in bassinet, MOB looked at baby frequently. MOB reports to having feeling a connection with baby. MOB with history of substance use, last use in 2009. MOB does admit to substance use of THC throughout and is aware that a referral to [facility] will be made. MOB has obtained everything that she needs for baby and has natural supports in place. Safe Plan of Care for related to substance use:?MOB denies plans on using THC now that baby has been born. Education and encouragement provided to MOB on abstaining from substance use. PLAN:? MOB and baby to be discharged when medically ready. ?No other services requested or indicated.
--- NOTE | 2024-04-14 14:02 | CASEMGMT ---
Social Work Assessment Labor and Delivery Unit Patient Address: [address] [place] [address]. [address], [place] [address] Phone number: [phone] Date of Referral: 04/12/24 Time of Referral:? 1351 Referred By: Dr. Toure Date of Intervention: ??04/14/24 Time of Intervention:? 929 Reason for Referral:? anxiety, depression, hx drug use Sw completed chart review and acknowledges social work consult due to maternal mental health history and substance use history. Sw presented to bedside, accompanied by TRAILER PARK MANAGER Eugenia Banuelos, introduced self to patient and completed psychosocial assessment. History obtained from: medical records, MOB Household composition: VICTOR MANUEL reports that she and FOB are currently residing with paternal grandmother. Also living in the home are other children to MOB and FOB: Sindhu (12- MOB's daughter), Dmitri (5- son to MOB and FOB), Brittney (17- FOB daughter), Princess (16- FOB's daughter) and Josh (10- FOB's son). There are now 6 children between MOB and FOB, baby is their second child together. - MOB states that FOB's daughter, Princess, has chosen not to come stay with them at this time. Other children alternate time with MOB/ FOB and their other parents. - VICTOR MANUEL denies any issues or concerns with housing, reports that it is safe and secure. Patient's parent/guardian status:? ?VICTOR MANUEL states that she and FOB met 7 years ago while FOB was working at a [employer] that MOB would frequent with friends after they had gone out drinking. No concerns reported at this time regarding domestic violence or intimate partner violence. Medical History: ?VICTOR MANUEL is 38 year old female who is 4, para 2- now 3 following labor and delivery of baby. VICTOR MANUEL received routine care during with [facility]. VICTOR MANUEL presented to hospital on 04/12/24 for an induction of labor and required emergency delivery due to prolapsed cord of baby. Baby girl, Nicki Park, was born on 04/[birth year]/24 at 39 weeks gestation weighing 7lb 1oz with apgars of 9 and 9 at one and five minutes of life, respectfully. VICTOR MANUEL states that she is breast feeding and has a pump for home. Baby will be followed by Dr. Gaspar for pediatrics. Educational Status:?MOB states that both parents completed high school. JILLIAN obtained a medical certificate. No issues with reading, learning or comprehension.? Financial Status: Both parents are gainfully employed outside of the home. JILLIAN works in the [email or web address] of [employer], VICTOR MANUEL works for a local [employer]. Both parents are able to have off adequate leave time for maternity/ paternity leave. Supplies:?? Parents have obtained all necessary baby supplies, including: car seat, safe sleep space, clothes, diapers and wipes. Childcare/Caregiver(s):? VICTOR MANUEL reports that she will be the primary caregiver, along with JILLIAN when he is not working. MOB states that they have the help of paternal grandma for childcare. Transportation:?Both parents have their drivers license and reliable means of transportation. No barriers at this time. ? Programs/Agencies Involved: ??VICTOR MANUEL states that she is connected to [employer] and medical through [facility]. VICTOR MANUEL has used WIC in the past, but is not currently connected. ? Children Services/Legal Issues:??? MOB denies history of children services involvement. VICTOR MNAUEL was informed that a referral will need to be made due to her substance use during and infant exposure inutero. VICTOR MANUEL expressed understanding. - Sw to make referral to [facility]. - VICTOR MANUEL also reports that JILLIAN has ongoing legal involvement with his ex- and issues revolving around their divorce. Behavioral Health Issues: ??Mental Health History: MOB states that JILLIAN does not have any mental health diagnoses. MOB reports to being diagnosed with anxiety and depression. MOB states that she was prescribed zoloft in the past, but was taking pristique up until discovering of . MOB reports that her PCP is her Pristiq prescriber. ??? Substance Use History: VICTOR MANUEL does have substance use history including heroin. VICTOR MANUEL's last use was in 2009. MOB reports that she did not complete a treatment program, but cold turkey. MOB states that her mother kept her in the home while she went through withdrawal. MOB states that she stopped associating with people, places and things, and has not had any urges since that time to use. MOB denies substance use for JILLIAN. ?? Family History:?MOB denies family history of addiction or significant mental health diagnoses. ? Drug Screens: ??Last drug screen in MOB chart is from 2018- all substances were negative at that time. No drug screens observed in chart throughout . Urine screen at time of delivery not observed to be completed. First two urine screens for baby were missed and not done, meconium drug test still pending. Family/Social Stressors:? MOB denies any issues, stressors or concerns at this time. Support Systems: MOB identifies that FOYung and her oldest daughter are her biggest supports at this time. Depression/Shaken Baby/Safe Sleeping:? Sw educated MOB to signs and symptoms of mood and anxiety disorders. Encouragement provided for MOB to seek support if she were to experience symptoms during this period. MOB states that if she did struggle, FOYung? would be able to recognize that and he would know how to help and support her. Education and handouts provided on shaken baby prevention and ABCs of safe sleep. ASSESSMENT:? MOB and baby admitted following labor and delivery of . MOB made and maintained eye contact throughout completion of psychosocial assessment. MOB answered questions and elaborated on some answers. Baby was asleep in bassinet and while talking with sw MOB would look at baby from time to time. MOB with mental health and substance use history. MOB was an IV heroin user- she reports due to an unhealthy relationship that she was in with her first daughter?s father. MOB denies any illicit drug use since 2009. No urine screens appear to have been completed throughout or at time of delivery. Baby meconium is still pending. MOB reports to having all necessary baby supplies and has natural supports in place. Safe Plan of Care for infant related to substance use:? MOB denies intention of using marijuana now that baby has been born. MOB encouraged to abstain from all substances, especially while providing breast milk. MOB expressed understanding and agreement. PLAN:? MOB and baby to be discharged when medically ready. ?No other services requested or indicated. Darrick Reza, FISHING ROD MARKER, TRAILER PARK MANAGER
[2024-04-14 14:27] VITALS: BP 117/68; PULSE 88; RESP 16; TEMP 36.4; O2SAT 100
--- NOTE | 2024-04-15 11:34 | CASEMGMT ---
Social Work Sw called [facility] and made referral due to maternal use of THC throughout her . MOB was made aware that referral was being made. Sw spoke to hotline screener, Kamla who reports that the referral will be passed along to her supervisor taping who will determine as to whether it is screened in or out. Sw agreed to keep an eye out for baby meconium results. Darrick Reza, LOAD OUT SUPERVISOR, MILK DELIVERY DRIVER
== END 2024-04-14 17:40 | disposition home or self-care (01) | DRG 539 ==
PROVIDERS: Advanced Practice Midwife; Admitting Provider Obstetrics & Gynecology; PCP Internal Medicine; Visit Provider Obstetrics & Gynecology
DX: O99.284 Endocrine, nutritional and metabolic diseases complicating childbirth (principal); E03.9 Hypothyroidism, unspecified; F17.200 Nicotine dependence, unspecified, uncomplicated; O99.334 Smoking (tobacco) complicating childbirth; O69.0XX0 Labor and delivery complicated by prolapse of cord, not applicable or unspecified; O32.6XX0 Maternal care for compound presentation, not applicable or unspecified; Z30.2 Encounter for sterilization; Z37.0 Single live birth; Z3A.39 39 weeks gestation of pregnancy; Z79.890 Hormone replacement therapy
CPT/HCPCS: 59025; 59050; 85025; 85027; 86780; 86850; 86900; 86901; 88302; 99221; J7120; A4216; G0378